=== PATIENT | male | born 1955 | race Caucasian/White ===

== ENCOUNTER 2017-09-26 04:21 | Emergency (ER) | payer OTHER ==
[~2017-09-26] VITALS: Ht 185.4 cm; Wt 163.3 kg
[2017-09-26 04:25] VITALS: BP_SYST 138
[2017-09-26 05:15] LABS: BASOPHILS % (AUTO) 0.4 % (0.0-2.0); EOSINOPHILS # (AUTO) 0.2 K/uL (0.0-0.4); EOSINOPHILS % (AUTO) 3.1 % (0.0-4.0); HEMATOCRIT 35.7 % (36-54); HEMOGLOBIN 11.7 g/dL (14.0-18.0); LYMPHOCYTES # (AUTO) 1.9 K/uL (1.0-5.5); LYMPHOCYTES % (AUTO) 27.8 % (20.5-51.5); MEAN CORPUSCULAR HEMOGLOBIN 31 pg (27-31); MEAN CORPUSCULAR HGB CONC 33 % (32-36); MEAN CORPUSCULAR VOLUME 94 fL (79.0-98.0); MONOCYTES # (AUTO) 0.5 K/uL (0.0-1.0); MONOCYTES % (AUTO) 7.6 % (1.7-9.3); NEUTROPHILS # (AUTO) 4.3 K/uL (1.8-7.7); NEUTROPHILS % (AUTO) 61.1 % (40.0-70.0); PLATELET COUNT (AUTO) 160 K/uL (130-430); RED BLOOD CELL COUNT(AUTO) 3.81 MIL/uL (4.2-6.2); WHITE BLOOD COUNT (AUTO) 6.9 K/uL (4.8-10.8)
[2017-09-26 05:24] LABS: CALCIUM 8.5 mg/dL (8.4-11.0); CREATININE 1.53 mg/dL (0.55-1.30); POTASSIUM 3.3 mmol/L (3.5-5.1)
[2017-09-26 05:29] LABS: ALBUMIN 3.3 g/dL (3.4-4.8); TOTAL BILIRUBIN 0.4 mg/dL (0.0-1.0)
[2017-09-26] MEDS ORDERED: CLOP75TA2 PO (05:41)
[2017-09-26] MEDS ORDERED: NPH,100V SUBCUT (05:41)
[2017-09-26] MEDS ORDERED: LOSA100T11 PO (05:41)
[2017-09-26] MEDS ORDERED: CYAN100067 PO (05:41)
[2017-09-26] MEDS ORDERED: HYDR-4039 PO (05:41)
[2017-09-26] MEDS ORDERED: HYT1 PO (05:41)
[2017-09-26] MEDS ORDERED: HYDR25TA4 PO (05:41)
[2017-09-26] MEDS ORDERED: METO25TA6 PO (05:41)
[2017-09-26] MEDS ORDERED: FURO-149 PO (05:41)
[2017-09-26] MEDS ORDERED: VITD2000 PO (05:41)
[2017-09-26] MEDS ORDERED: CALC200T PO (05:41)
[2017-09-26] MEDS ORDERED: LIP80 PO (05:41)
[2017-09-26] MEDS ORDERED: METF-509 PO (05:41)
[2017-09-26] MEDS ORDERED: ASPI-1063 PO (05:41)
[2017-09-26] MEDS ORDERED: POTA-118 PO (05:41)
[2017-09-26] MEDS ORDERED: MULT PO (05:41)
[2017-09-26 09:15] VITALS: BP_SYST 144
== END 2017-09-26 09:15 | disposition short-term general hospital (02) ==
LOC: SED 04:21
DX: R07.89 Other chest pain (principal); I48.91 Unspecified atrial fibrillation; I25.2 Old myocardial infarction; I10 Essential (primary) hypertension; Z95.9 Presence of cardiac and vascular implant and graft, unspecified; Z79.82 Long term (current) use of aspirin; Z79.899 Other long term (current) drug therapy
CPT/HCPCS: 36415; 71010; 80053; 83690-TC; 83880; 84484; 85025; 93005; 99285

== ENCOUNTER 2021-05-29 15:29 | Emergency (ER) | payer OTHER ==
[~2021-05-29] VITALS: Ht 182.9 cm; Wt 145.1 kg
[~2021-05-29 15:29] MED LIST: ASPI-1393 PO; CALC200T47 PO; CLOP75TA2 PO; CYAN100010 PO; FURO-149 PO; HYDR-4039 PO; HYDR25TA4 PO; HYT1 PO; LIP80 PO; LOSA100T3 PO; METF-834 PO; METO25TA6 PO; MULT PO; NPH,100V SUBCUT; POTA10TA15 PO; VITD2000 PO
--- NOTE | 2021-05-29 15:50 | NUR ---
TRAIGED AND PLACED IN THE WATING ROOM
--- NOTE | 2021-05-29 17:36 | NUR ---
Patient left without being seen.
== END 2021-05-29 17:36 | disposition left against medical advice (07) ==
LOC: SED 15:29
DX: M79.652 Pain in left thigh (principal); Z53.21 Procedure and treatment not carried out due to patient leaving prior to being seen by health care provider